=== PATIENT | male | born 1960 | race Caucasian/White ===

== ENCOUNTER 2024-11-10 12:50 | Outpatient (RCR) | payer OTHER, SELFPAY | END 2024-12-03 23:59 | LOC: NS 12:50 | PROVIDERS: PCP Internal Medicine; Referring Provider Internal Medicine; Visit Provider Internal Medicine | DX: Z71.3 Dietary counseling and surveillance (principal); E11.9 Type 2 diabetes mellitus without complications | CPT/HCPCS: 97802 ==

== ENCOUNTER 2024-12-14 16:22 | Outpatient (RCR) | payer OTHER, SELFPAY | END 2025-01-02 23:59 | LOC: NS 16:22 | PROVIDERS: PCP Internal Medicine; Referring Provider Internal Medicine; Visit Provider Internal Medicine | DX: Z71.3 Dietary counseling and surveillance (principal); E11.9 Type 2 diabetes mellitus without complications | CPT/HCPCS: 97803 ==

== ENCOUNTER 2025-01-17 15:56 | Outpatient (RCR) | payer OTHER, SELFPAY | END 2025-02-02 23:59 | LOC: NS 15:56 | PROVIDERS: PCP Internal Medicine; Referring Provider Internal Medicine; Visit Provider Internal Medicine | DX: Z71.3 Dietary counseling and surveillance (principal); E11.9 Type 2 diabetes mellitus without complications | CPT/HCPCS: 97803 ==

== ENCOUNTER 2025-01-26 07:24 | Day surgery (SDC) | payer OTHER, SELFPAY ==
[2025-01-26] VITALS (7 sets, daily range): BP systolic 93–121; BP diastolic 69–86; PULSE 54–67; RESP 16–67; TEMP 36.2–36.6; O2SAT 96–99; BMI 25.0
--- OUTSIDE RECORDS SUMMARY | 2025-01-26 07:27 | XMS RPT_ITS | CCD ---
Author Organization [facility] Care Team Providers Care Personal Shopper Name Role Phone Saumya BANUELOS, Dr. Berg Attending Provider Saumya BANUELOS, Dr. Berg Primary Care Provider [phone] Saumya BANUELOS, Dr. Berg Referring Provider Earlham, Morena Primary Care Unavailable Earlham, Morena Referring Unavailable Saumya, Morena Attending Unavailable Earlham, Morena Referring Unavailable Saumya, Morena Attending Unavailable Earlham, Morena Primary Care Unavailable Earlham, Morena Primary Care Unavailable Saumya, Morena Referring Unavailable Saumya, Morena Attending Unavailable Earlham, Morena Attending Unavailable Saumya, Morena Referring Unavailable Kory Sexton Attending Unavailable Earlham, Morena Primary Care Unavailable Saumya, Morena Primary Care Unavailable Saumya, Morena Referring Unavailable Saumya, Morena Attending Unavailable Medications Current Medications Medication Drug Class(es) Dates Sig (Normalized) Sig (Original) metFORMIN hydrochloride 500 mg oral tablet (6 sources) Biguanide Start: 11-03-2024 take 1 tablet by mouth twice daily at mealtime Metformin 500 mg tablet Active 500 mg PO 2 times per day with meals 60 2 November 03, 2024 2:53pm Start: 10-05-2024 End: 11-03-2024 Metformin 500 mg tablet Disc ontinued 500 mg PO 2 times per day with meals 60 1 October 05, 2024 12:00am November 03, 2024 2:53pm take 500mg once daily for 3 days, then increase to twice daily Completed/Discontinued Medications Medication Drug Class(es) Dates Sig (Normalized) Sig (Original) Sodium Chloride (3 sources) Start: 10-05-2024 End: 10-19-2024 Sodium Chloride (Saline Wound Wash) 0.9 % solution Discontinued 10 mL MC TWICE A DAY 210 14 0 October 05, 2024 12:00am October 18, 2024 12:00am October 19, 2024 12:06am apply to wound area twice daily Start: 10-05-2024 End: 10-19-2024 Sodium Chloride (Saline Woun d Wash) 0.9 % solution Discontinued 10 mL MC TWICE A DAY 210 14 October 05, 2024 12:00am October 18, 2024 12:00am October 19, 2024 12:06am apply to wound area twice daily Problems Problem Classification Problem Date Documented Date Episodic/Chronic Administrative/social admission (2 sources) First encounter by subject; Translations: [Persons encountering health services in other specified circumstances] 10-05-2024 Episodic Diabetes mellitus without complication (4 sources) Type 2 diabetes mellitus; Translations: [Type 2 diabetes mellitus without complications] Onset: 01-04-2025 10-05-2024 Chronic Diabetes mellitus without complication (4 sources) Diabetes mellitus without complication Genitourinary symptoms and ill-defined conditions (3 sources) Post-micturition incontinence ; Translations: [Post-void dribbling] 10-05-2024 Chronic Immunizations and screening for infectious disease (3 sources) Immunization due; Translations: [Encounter for immunization] 10-05-2024 Episodic Inflammatory conditions of male genital organs (2 sources) Balanitis; Translations: [Balanitis] 10-05-2024 Chronic Other circulatory disease (3 sources) Elevated blood pressure; Translations: [Elevated blood-pressure reading, without diagnosis of hypertension] 10-05-2024 Episodic Other nervous system disorders (3 sources) Paresthesia of lower extremity; Translations: [Anesthesia of skin] 10-05-2024 Episodic Other screening for suspected conditions (not mental disorders or infectious disease) (6 sources) Patient encounter status; Translations: [Encounter for screening for malignant neoplasm of colon] 12-05-2024 Episodic Residual codes; unclassified (2 sources) Family history of prostate cancer; Translations: [Family history of malignant neoplasm of prostate] 10-05-2024 Episodic Unclassified (6 sources) Encounter for screening for malignant neoplasm of colon; Translations: [Z12.11 - Encounter for screening for malignant neoplasm of colon] Unclassified (7 sources) E11.9 - Type 2 diabetes mellitus without complications Results Test Name Value Interpretation Reference Range [facility] Internal Medicine Office Vis felix 01-03-2025 Internal Medicine Office Visit [facility] [address] [place], [place] [id number] OFFICE VISIT Date of Service: 01/04/25 MR#: [id number] Acct: [id number] Name: SANG ZAMBRANO Rep #: [id number] : 1960 Provider: Dr. 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: No Is patient in pain?: No Allergies No Known Allergies Allergy (Unverified 01/04/25 08:22) Medications ???Medication ???Instructions ???Recorded ???Confirmed ???Type metformin 500 mg tablet 500 mg PO BIDWMEAL #60 tabs 01/04/25 Rx PFSH Medical History Dermoid cyst of skin of back Back problem Surgical History History of dermoid cyst excision Family History Brother Prostate cancer Social History household members: none current occupational status: employed current occupation: [employer] Smoking Status: Never smoker alcohol intake: former year quit: 1999 substance use type: marijuana do you feel safe at home: Yes HPI HPI Details: SANG ZAMBRANO, is a 64 M who presents to the office today for a follow up. He never did his blood work as previously ordered. He does have his colonoscopy scheduled for later this month. He is due for his second shingrix. He doesn't smoke and doesn't need any refills. He reports he is eating healthy and staying active. He likes to ride his stationary bike at least 10-20 minutes per day. The patient has not been checking his blood pressure at home. He is not taking anything for it. He tries to avoid salty foods. He doesn't drink coffee or energy drinks. At his last office visit, he was found to have a new onset of diabetes. Metformin was started and diet and exercise were discussed. He has been taking it as prescribed without problems. He has been following with the cut off tender glass and feels that has been helpful. He doesn't check his sugars at home. He does try to monitor his carbohydrate and sugar intake. He is not up to date on his diabetic eye exam and doesn't see podiatry. The balanitis from his last office visit has resolved. He reports he is still having some numbness and tingling in his feet bilaterally. He reports it is just slightly better than it had been. He reports with better sugar control, his nocturia has improved. He does still have a little post void dribbling occasionally, but it is better than it was. He has no other questions or concerns at this time. ROS Const Constitutional: Positive for weight change (16 pound weight loss); No body ache, chills, excessive sweating, fatigue, fever(s), frequent falls, headache(s), snoring, weakness, sleep problems or change in appetite Eyes Eyes: Positive for change in vision (improved); No blurry vision, eye pain or Light sensitivity ENT ENT: No abnormal hearing, ear or mastoid pain, tinnitus, nasal congestion, headache(s), neck pain or sore throat Resp Respiratory: No cough, shortness of breath, snoring or wheezing Cardio Cardiology: No chest pain at rest, chest pain with exertion, excessive sweating, shortness of breath, dyspnea on exertion, lightheadedness, orthopnea, palpitations or other (no leg swelling) Gastro GI: No abdominal pain, change in bowel habits, constipation, cramping, diarrhea, nausea/dyspepsia or vomiting Genitourinary Male: Positive for post void dribbling (improving); No difficulty urinating, burning urination, painful urination, urinary incontinence, urinary frequency or Frequent nighttime urination/ nocturia Musc Musculoskeletal: Positive for numbness (feet) and tingling (feet); No abnormal gait, joint pain, back pain, limited range of motion or neck pain Skin Skin: No dry skin, redness, lesions, itchy eyes, rash or wounds Neuro Neurology: Positive for dizziness (one episode, with looking up), numbness (feet) and tingling (feet); No abnormal gait, abnormal hearing, weakness, frequent falls, headache(s), memory loss or fainting Psych Psychiatric: No anxiety, No change in appetite, No depression, No memory loss and No Thoughts of harming yourself/Others Endo Endocrine: Positive for weight change (16 pound weight loss); No cold intolerance, excessive sweating, fatigue, flushing, heat (more content not included)... Normal [facility] - Hematology and Cell countsOrdered By: Morena Kerns on 10-05-2024 HbA1c (Bld) [Mass fraction] 11.8 % High 4.2-6.3 [facility] Internal Medicine Office Vis iton 10-04-2024 Internal Medicine Office Visit [facility] [place] [address] [place] [address] OFFICE VISIT Date of Service: 10/05/24 MR#: [id number] Acct: [id number] Name: SANG ZAMBRANO Rep #: [id number] : 1960 Provider: Dr. 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 Chief Complaint: establishing Field Marketing Coordinator Required: No Accompanied by: Self Is patient in pain?: No Allergies No Known Allergies Allergy (Unverified 10/05/24 07:51) Medications ???Medication ???Instructions ???Recorded ???Confirmed ???Type metformin 500 mg tablet 500 mg PO BIDWMEAL #60 tabs 10/05/24 Rx sodium chloride 0.9 % solution 10 ml miscellaneous BID 14 days 10/05/24 Rx (Saline Wound Wash) #210 mL Have you fallen in the past year?: No Nurse's Note: feels like body is changing lost toe nail, cyst on back, urgency with urination and sensation down leg and urinating often during the night. Uncircumsized and feels like skin closing and its red and irritated and difficult cleaning very tight [facility] Medical History Dermoid cyst of skin of back Back problem Surgical History (Updated 10/05/24 @ 08:[address] Morena Kerns MD) History of dermoid cyst excision Family History Brother Prostate cancer Social History (Updated 10/05/24 @ 08:[address] Morena Kerns MD) household members: none current occupational status: employed current occupation: [employer] Smoking Status: Never smoker alcohol intake: former year quit: 1999 substance use type: marijuana do you feel safe at home: Yes Questionnaire [facility]-9 BMS Over the last 2 weeks, how often have you been bothered by any of the following problems? 1. Little interest or pleasure in doing things: not at all 2. Feeling down, depressed, or hopeless: not at all 3. Trouble falling or staying asleep, or sleeping too much: more than half the days 4. Feeling tired or having little energy: more than half the days 5. Poor appetite or overeating: not at all 6. Feeling bad about yourself - or that you are a failure or have let yourself and your family down: not at all 7. Trouble concentrating on things, such as reading the newspaper or watching television: several days 8. Moving or speaking so slowly that other people could have noticed? - Or the opposite - being so fidgety or restless that you have been moving around a lot more than usual: not at all 9. Thoughts that you would be better off or of hurting yourself in some way: not at all Total score: 5 If you checked off any problems, how difficult have these problems made it for you to do your work, take care of things at home, or get along with other people?: not difficult at all Source: Developed by Drs. Bruno Marx, Cleopatra Herrera, Altaf Royal and colleagues, with an educational tatyana from [employer]. HPI HPI Chief Complaint: establishing Details: SANG ZAMBRANO, is a 64 M who presents to the office today to establish care. He hasn't had a PCP in several years. He is due for some routine blood work and screening. He would like his flu shot and shingles vaccine. He doesn't smoke and doesn't take any prescription medications. He reports he is eating healthy and staying active. He reports he tries to avoid processed foods. The patient has never been told he had high blood pressure. He states at the dentist and other appointments, he is usually told it is good. He tries to avoid salty foods. He doesn't drink coffee or energy drinks. The patient has concerns about his penis. He reports over the last 5-6 months, he has had trouble pulling his foreskin down. He reports it isn't swollen. He reports it is red, but he doesn't feel it is hot to touch. He reports he has been applying vaseline on the area. He reports when it started, he had a 'film' on the area and thought it was a yeast infection. He reports a history of yeast infections, but nothing like this. He reports he tried an OTC monistat cream which he thought was helpful, but his symptoms recurred and has been persistent for a couple of months. He reports he doesn't have any current discharge/buildup. He denies any dysuria, but reports he has been having urinary frequency and post void dribbling. He states his urine does smell a little stronger. He states in the last week, it feels like it is a little wor (more content not included)... Normal [facility] Vital Signs Date Time Vital Sign Value Performing Clinician Norberto dick 01-04-2025 08:29-0400 Body height 177.[address] Morena Kerns MD Work Phone: [facility] 01-04-2025 08:29-0400 Body mass index (BMI) [Ratio] 25.8 kg/m2 Dr. Morena Kerns MD Work Phone: [facility] 01-04-2025 08:29-0400 Body temperature 97.9 [degF] Dr. Morena Kerns MD Work Phone: [facility] 01-04-2025 08:29-0400 Body weight 81.[address] Morena Kerns MD Work Phone: [facility] 01-04-2025 08:29-0400 Diastolic blood pressure 70 mm[Hg] Dr. Morena Kerns MD Work Phone: [facility] 01-04-2025 08:29-0400 Heart rate 60 /min Dr. Morena Kerns MD Work Phone: [facility] 01-04-2025 08:29-0400 Respiratory rate 14 /min Dr. Morena Kerns MD Work Phone: [facility] 01-04-2025 08:29-0400 SaO2% (BldA) [Mass fraction] 97 % Dr. Morena Kerns MD Work Phone: [facility] 01-04-2025 08:29-0400 Systolic blood pressure 112 mm[Hg] Dr. Morena Kerns MD Work Phone: [facility] 12-14-2024 16:28-0400 Body height 177.[address] Morena Kerns MD Work Phone: [facility] 12-14-2024 16:28-0400 Body weight 84.[address] Morena Kerns MD Work Phone: [facility] 11-10-2024 12:20-0400 Body weight 86.[address] Morena Kerns MD Work Phone: [facility] 10-05-2024 09:04-0400 Diastolic blood pressure 80 mm[Hg] Dr. Morena Kerns MD Work Phone: [facility] 10-05-2024 09:04-0400 Systolic blood pressure 142 mm[Hg] Dr. Morena Kerns MD Work Phone: [facility] 10-05-2024 07:48-0400 Body height 177.[address] Morena Kerns MD Work Phone: [facility] 10-05-2024 07:48-0400 Body mass index (BMI) [Ratio] 28.1 kg/m2 Dr. Morena Kerns MD Work Phone: [facility] 10-05-2024 07:48-0400 Body temperature 97.2 [degF] Dr. Morena Kerns MD Work Phone: [facility] 10-05-2024 07:48-0400 Body weight 89.[address] Morena Kerns MD Work Phone: [facility] 10-05-2024 07:48-0400 Heart rate 65 /min Dr. Morena Kerns MD Work Phone: [facility] 10-05-2024 07:48-0400 Respiratory rate 16 /min Dr. Morena Kerns MD Work Phone: [facility] 10-05-2024 07:48-0400 SaO2% (BldA) [Mass fraction] 93 % Dr. Morena Kerns MD Work Phone: [facility] Encounters Encounter Date Encounter Type Care Provider Facility Start: 01-26-2025 ambulatory Morena Kerns Facility :[facility] Start: 01-17-2025 ambulatory Morena Kerns Facility :[facility] Start: 01-04-2025 End: 01-04-[address] Morena Kerns MD -[facility] Work Phone: Start: 01-04-2025 End: 01-04-[address] Morena Kerns MD Work Phone: -[facility] Start: 12-14-2024 End: 01-02-[address] Morena Kerns MD [facility] Work Phone: Start: 12-14-2024 End: 01-02-[address] Morena Kerns MD Work Phone: [facility] Start: 11-10-2024 End: 12-03-[address] Morena Kerns MD -[facility] Work Phone: Start: 11-10-2024 End: 12-03-[address] Morena Kerns MD Work Phone: [facility] Work Phone: Start: 10-05-2024 End: 10-05-[address] Morena Kerns MD -[facility] Work Phone: Start: 10-05-2024 End: 10-05-2024 ambulatory Morena Kerns Facility:[facility] Plan of Treatment Date Care Activity Detail Author Start: 10-05-2024 Patient referral [facility] Work Phone: CBC W Auto Different ial panel - Blood [facility] Comprehensive metabo lic 1999 panel - Serum or Plasma [facility] Lipid 1996 panel - S sally or Plasma [facility] Patient referral [facility] Work Phone: Prostate specific an tigen measurement [facility] Urinalysis complete panel - Urine [facility] Urine microalbumin/c reatinine ratio measurement [facility] Immunizations Immunization Date Immunization Notes Care Provider Fa cility 10-05-2024 influenza, injectabl e, madin kaylan canine kidney, preservative free Dr. Morena Kerns MD Work Phone: [facility] 10-05-2024 Influenza, injectabl e, Madin Kaylan Canine Kidney, preservative free, quadrivalent Dr. Morena Kerns MD Work Phone: [facility] 10-05-[address] Morena Kerns MD Work Phone: [facility] 05-23-2023 Covid (Spikevax) Dr. Morena Kerns MD Work Phone: [facility] 05-23-2023 influenza, injectabl e, quadrivalent, preservative free Dr. Morena Kerns MD Work Phone: [facility] 04-17-2022 influenza, injectabl e, quadrivalent, preservative free Dr. Morena Kerns MD Work Phone: [facility] 07-01-2021 Covid (Moderna) Dr. Morena sharif MD Work Phone: [facility] 03-25-2021 influenza, injectabl e, quadrivalent, preservative free Dr. Morena Kerns MD Work Phone: [facility] 03-25-2021 tetanus toxoid, redu donte diphtheria toxoid, and acellular pertussis vaccine, adsorbed Dr. Morena Kerns MD Work Phone: [facility] 11-21-2020 Covid (Moderna) Dr. Morena sharif MD Work Phone: [facility] 10-18-2020 Covid (Moderna) Dr. Morena sharif MD Work Phone: [facility] 05-09-2015 influenza, injectabl e, quadrivalent, preservative free Dr. Morena Kerns MD Work Phone: [facility] 04-24-2014 influenza, injectabl e, quadrivalent, preservative free Dr. Morena Kerns MD Work Phone: [facility] 05-02-2013 influenza, injectabl e, quadrivalent, preservative free Dr. Morena Kerns MD Work Phone: [facility] 06-21-2009 novel Influenza-H1N1 -09, live virus for nasal administration Dr. Morena Kerns MD Work Phone: [facility] Payers Date Payer Category Payer Self-pay 2024 Unknown [id number] Unknown [id number] [id number] Unknown [id number] [id number] Unknown [id number] [id number] [id number] Unknown [id number] [id number] [id number] Unknown [id number] [id number] [id number] Unknown [id number] 2.16.8 [id number] Social History Date Type Detail Facility [facility]: [facility] Start: 1960 Sex Assigned At Male [facility] Evaluation note 10-05-2024 Note Date & Type Note Facility 10-05-2024 Evaluation note Diagnosis Onset Date Resolution Balanitis noneactive October 05 7:41am Screening for colon cancer noneactive October 05, 2024 7:41am Immunization due noneactive October 7:41am Family history of prostate cancer noneactive October 05, 2024 7:41am Elevated blood pressure reading noneactive October 05, 2024 7:41am Screening for cardiovascular condition noneactive October 052024 7:41am Establishing care with new doctor, encounter for noneactive October 05, 2024 7:41am Post-void dribbling noneactive October 05, 2024 7:41am New onset type 2 diabetes mellitus noneactive October 05 7:41am Numbness and tingling of both legs noneactive October 05, 2024 7:41am [facility] Work Phone: Evaluation note 10-05-2024 Note Date & Type Note Facility 10-05-2024 Evaluation note Diagnosis Onset Date Resolution Balanitis noneactive October 05 7:41am Screening for colon cancer noneactive October 05, 2024 7:41am Immunization due noneactive October 7:41am Family history of prostate cancer noneactive October 05, 2024 7:41am Elevated blood pressure reading noneactive October 05, 2024 7:41am Screening for cardiovascular condition noneactive October 052024 7:41am Establishing care with new doctor, encounter for noneactive October 05, 2024 7:41am Post-void dribbling noneactive October 05, 2024 7:41am New onset type 2 diabetes mellitus noneactive October 05 7:41am Numbness and tingling of both legs noneactive October 05, 2024 7:41am Immunization due noneactive January 8:21am Elevated blood pressure reading noneactive January 04, 2025 8:21am Post-void dribbling noneactive January 04, 2025 8:21am New onset type 2 diabetes mellitus noneactive January 04, 2025 8:21am Numbness and tingling of both legs noneactive January 04, 2025 8:21am [facility] Work Phone: Evaluation note Note Date & Type Note Facility Evaluation note No assessment information availa [facility] Work Phone: Hospital Discharge instructions Note Date & Type Note Facility Hospital Discharge instructions Ambulatory OrdersOphthalmology Location: None Selected [facility] Work Phone: Chief Complaint and Reason for Visit 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 October 05, 2024 7:41am TYPE 2 DM November 10, 2024 12:50p m TYPE 2 DM December 14, 2024 4:22 pm Reason for Visit Admit Date Balanitis October 05, 2024 7:41 am Screening for colon cancer October 05 7:41am Immunization due October 05, 2024 7:41 am Family history of prostate cancer October 05, 2024 7:41am Elevated blood pressure reading October 7:41am Screening for cardiovascular condition A pri2024 7:41am Establishing care with new doctordannie for October 05, 2024 7:41am Post-void dribbling October 05, 2024 7:41 am New onset type 2 diabetes mellitus October 05, 2024 7:41am Numbness and tingling of both legs October 05, 2024 7:41am 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 October 05, 2024 7:41am TYPE 2 DM November 10, 2024 12:50p m TYPE 2 DM December 14, 2024 4:22 pm 3 M FU January 04, 2025 8:21a m Reason for Visit Admit Date Balanitis October 05, 2024 7:41 am Screening for colon cancer October 05 7:41am Immunization due October 05, 2024 7:41 am Family history of prostate cancer October 05, 2024 7:41am Elevated blood pressure reading October 7:41am Screening for cardiovascular condition A 2024 7:41am Establishing care with new doctordannie for October 05, 2024 7:41am Post-void dribbling October 05, 2024 7:41 am New onset type 2 diabetes mellitus October 05, 2024 7:41am Numbness and tingling of both legs October 05, 2024 7:41am Immunization due January 04, 2025 8:21a m Elevated blood pressure reading January 8:21am Post-void dribbling January 04, 2025 8:21a m New onset type 2 diabetes mellitus January 04, 2025 8:21am Numbness and tingling of both legs January 04, 2025 8:21am Summary Purpose Family History No Family History Records Found Advance Directives No Advanced Directives Records Found Additional Source Comments Care Teams (unrecognized sec tion and content) Team Status: Active Member Role Status Dates Dr. Morena Kerns MD Primary Care Provider Active Team Status: Inactive Member Role Status Dates Dr. Morena Kerns MD Attending Provider Active Start: October 05, 2024 End: October 05, 2024 Team Status: Inactive Member Role Status Dates Dr. Morena Kerns MD Primary Care Provider Active Start: November 10, 2024 End: December 03, 2024 Dr. Morena Kerns MD Attending Provider Active Start: November 10, 2024 End: December 03, 2024 Dr. Morena Kerns MD Referring Provider Active Start: November 10, 2024 End: December 03, 2024 Team Status: Active Member Role/Relationship Status Dates Dr. Morena Kerns MD Primary Care Provider Active Team Status: Inactive Member Role/Relationship Status Dates Dr. Morena Kerns MD Attending Provider Active Start: October 05, 2024 End: October 05, 2024 Team Status: Inactive Member Role/Relationship Status Dates Dr. Morena Kerns MD Primary Care Provider Active Start: November 10, 2024 End: December 03, 2024 Dr. Morena Kerns MD Attending Provider Active Start: November 10, 2024 End: December 03, 2024 Dr. Morena Kerns MD Referring Provider Active Start: November 10, 2024 End: December 03, 2024 Team Status: Inactive Member Role/Relationship Status Dates Dr. Morena Kerns MD Primary Care Provider Active Start: December 14, 2024 End: January 02, 2025 Dr. Morena Kerns MD Attending Provider Active Start: December 14, 2024 End: January 02, 2025 Dr. Morena Kerns MD Referring Provider Active Start: December 14, 2024 End: January 02, 2025 Team Status: Inactive Member Role/Relationship Status Dates Dr. Morena Kerns MD Primary Care Provider Active Start: January 04, 2025 End: January 04, 2025 Dr. Morena Kerns MD Attending Provider Active Start: January 04, 2025 End: January 04, 2025 Dr. Morena Kerns MD Referring Provider Active Start: January 04, 2025 End: January 04, 2025 Goals (unrecognized section and content) Goals may be documented in a n alternate sectionGoals may be documented in an alternate sectionGoals may be documented in an alternate section (unrecognized sect ion and content) No Status Records Found INFORMATION SOURCE (unrecogn ized section and content) DATE CREATED AUTHOR 01/25/2025 [facility] FOR RECORDS PERTAINING TO PATIENTS WHO ARE OR HAVE BEEN ENROLLED IN A CHEMICAL DEPENDENCY/SUBSTANCEABUSE PROGRAM, SOME INFORMATION MAY BE OMITTED. This clinical summary was aggregated from multiple sources. Caution should be exercised in using it in the provision of clinical care. This summary normalizes information from multiple sources, and as a consequence, information in this document may materially change the coding, format and clinical context of patient data. In addition, data may be omitted in some cases. CLINICAL DECISIONS SHOULD BE BASED ON THE PRIMARY CLINICAL RECORDS. [facility] [employer] [facility] provides no warranty or guarantee of the accuracy or completeness of information in this document.
[2025-01-26] MEDS: Lactated Ringers 1,000 ML 15 ML IV (07:54)
--- NOTE | 2025-01-26 08:06 | PCM.PRE.AN2 ---
ASA Classification* ASA Classification ASA Classification: 2 Assessment & Plan Anesthesia* Anesthesia Assessment Anesthesia Assessment: Discussed sedation and/or anesthesia options, risks, benefits, and alternatives with patient/parents/legal guardian/POA. Questions invited. The patient/parents/legal guardian/POA seems to understand and agrees to proceed with anesthesia plan. Reviewed the physical assessment, medical history, allergy history and patient home medications list prior to surgery/procedure/anesthetic and documented any changes. Performed airway and anesthesia risk assessments. Anesthesia Type Anesthesia Type: General and MAC Anesthesia Focused Assessment* Temperature: 97.9 F Pulse Rate: 67 Blood Pressure: 121/85 Respiratory Rate: 67 Pulse Ox: 98 Airway Assessment Mouth opens: >3 cm Mallampati Score: II Teeth Condition: Missing (right upper molar) Neck Range of motion (ROM): Full ROM Labs Anesthesia Preop lab: CBC CHEMISTRY COAG Pre-Assessment Diagnosis/Proposed Procedure Planned Operative Procedure(s): COLONOSCOPY Anesthesia History Anesthesia History - orthotic practitioner: Anesthesia History - orthotic practitioner Hx Hospitalization No 01/24/25 10:31 Any Problems With Anesthesia No 01/24/25 10:31 Cholinesterase deficiency No 01/24/25 10:31 You/Your Family Experience No 01/24/25 10:31 fever (hyperthermia) with Relationship Recent Exposure to Contagious No 01/26/25 07:52 Disease Does patient have nerve No 01/24/25 10:31 stimulator Patient instructed to have device shut off --Does patient have Pacemaker No 01/26/25 07:52 or ICD? When Was Last Pacemaker Check QUESTION #4 FULL TEXT: You/Your Family Experience fever (hyperthermia) with Anesthesia Last Oral Intake Last Oral intake: Last Oral Intake NPO since 05:00 01/26/25 07:52 Meds taken in AM with sips of No 01/26/25 07:52 water? Meds patient instructed to take am of surgery PONV PONV - orthotic practitioner: PONV - orthotic practitioner Female No 01/24/25 10:31 HX of Motion Sickness No 01/24/25 10:31 HX of N/V After Surgery No 01/24/25 10:31 Non-Smoker Yes 01/24/25 10:31 Duration of Surgery greater No 01/24/25 10:31 than 60 minutes Number of Risk Factors 1 01/24/25 10:31 PONV Score Low Risk 01/24/25 10:31 Height & Weight Height & Weight: Anesthesia: Height & Weight Height 5 ft 10 in 01/26/25 07:52 Weight: 79 kg 01/26/25 07:52 Body Mass Index (BMI) 25.0 01/26/25 07:52 Respiratory Assessment Respiratory Assessment - orthotic practitioner: Respiratory Tract Infection Hx - orthotic practitioner Hx Respiratory Tract Infection Yes: 1 WEEK AGO- JUST LEFT 01/24/25 10:31 OVER COUGH STOP Sleep Apnea STOP Sleep Apnea - orthotic practitioner: STOP Sleep Apnea - orthotic practitioner Hx Hypertension No 01/24/25 10:31 Hx Sleep Apnea No 01/24/25 10:31 CPAP BIPAP Do you snore loudly (louder No 01/24/25 10:31 than talking or can be heard Do you often feel tired/ No 01/24/25 10:31 fatigued/ sleepy during daytime? Has anyone observed you stop No 01/24/25 10:31 breathing during sleep? STOP Results Negative 01/24/25 10:31 QUESTION #5 FULL TEXT : Do you snore loudly (louder than talking or can be heard through closed doors)? 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 Specify any problems Hx of Preganancy in last 3 N/A 01/24/25 10:31 Months Nurse Filling Out Transfusion [email or web address] 01/24/25 10:31 & Questions: Date: 01/24/25 01/24/25 10:31 Time: 10:36 01/24/25 10:31 Patient unable to answer at this time (ie. confused, unrespo /Reproduction History /Reproductive History - orthotic practitioner: /Reproductive Hx- orthotic practitioner Hx Now Gestational Age (in weeks): EDC: Hx Hx Para Hx Section SAB Active Medications Active Medications: Current Medications Generic Name Dose Route Start Last Admin Trade Name Freq PRN Reason Stop Dose Admin Lactated Ringer's 1,000 mls @ 15 mls/hr 01/26/25 07:45 01/26/25 07:54 IV 15 mls/hr .Q48H MARIUSZ Administration PFSH Medical History Marijuana use Diabetes Non-smoker Dermoid cyst of skin of back Back problem Home Medications Medication Instructions Recorded Last Taken Type metformin 500 mg tablet 500 mg PO BIDWMEAL #60 tabs 11/03/24 01/23/25 Rx Allergy/AdvReac Type Severity Reaction Status Date / Time No Known Allergies Allergy Verified 01/26/25 07:51 Family History Brother Prostate cancer Surgical History History of dermoid cyst excision Social History household members: none current occupational status: employed current occupation: [employer] Smoking Status: Never smoker alcohol intake: former year quit: 1999 substance use type: marijuana do you feel safe at home: Yes Review of Systems (Anesthesia) ROS Narrative System reviewed and no additional complaints, except as documented.
--- NOTE | 2025-01-26 08:30 | COLBX_PTH ---
PATIENT: SANG ZAMBRANO LOC: EN U#:[id number] AGE/SX: 64/M ROOM: RE01/26/[address]: Dr. Kory Sexton MD : 1960 BED: DIS: 01/26/2025 SPEC #: [id number] RECD: 01/26/25 13:16 STATUS: LUIS ZANDER #: [id number] IVONE: 01/26/25 08:[address]: Kory Sexton DEPT: SURGICAL PATHOLOGY RECD BY: Fabricio Salgado ENTERED: 01/26/25 14:06 SP TYPE: COLON BX OTHR DR: Dr. Morena Kerns MD Tissues: A - Transverse colon B - Transverse colon C - Cecum, NOS D - Rectum, NOS Procedures: Surgery Specimen Level IV HEADER OPERATION: Colonoscopy, polypectomy, biopsy PRE-OP DIAGNOSIS: Screening for malignant neoplasm of colon TISSUE SUBMITTED: A- Transverse colon polyp, B- Proximal transverse colon polyp, C- Cecal biopsy, D- Rectal biopsy MICROSCOPIC DIAGNOSIS A. Transverse colon, polyp, biopsy: - Tubular adenoma, multiple fragments. B. Proximal transverse colon, polyp, biopsy: - Prolapse features with mucosal lymphoid aggregate. C. Cecum, biopsy: - Tubular adenoma. D. Rectum, biopsy: - Hyperplastic polyp. MICROSCOPIC DESCRIPTION Slides are reviewed. GROSS DESCRIPTION A. Received in fixative is one container labeled with the patient's name and designated "Transverse colon polyp." The specimen consists of multiple irregular fragments of light gonzalez soft tissue that in aggregate measure 1.2 x 0.7 x 0.1 cm. The specimen is totally submitted in one cassette. B. Received in fixative is one container labeled with the patient's name and designated "Proximal transverse colon polyp." The specimen consists of one irregular fragment of light gonzalez soft tissue that measures 0.3 cm. The specimen is totally submitted in one cassette. C. Received in fixative is one container labeled with the patient's name and designated "Cecal biopsy." The specimen consists of one irregular fragment of light gonzalez soft tissue that measures 0.3 cm. The specimen is totally submitted in one cassette. D. Received in fixative is one container labeled with the patient's name and designated "Rectal biopsy." The specimen consists of one irregular fragment of light gonzalez soft tissue that measures 0.6 cm. The specimen is totally submitted in one cassette. AR 01/26/2025 CPT:74852p6
--- NOTE | 2025-01-26 09:03 | HP.PCM_ITS ---
[facility] - General General Date of Service: 01/26/25 Chief Complaint: Screening colonoscopy [facility] Narrative SANG ZAMBRANO, is a 64 M who presents screening colonoscopy. He confirms his preappointment questionnaire that he has not experienced any change in her bowel habits-and particularly denies any notice of blood. He also denies any family history of GI illness to include diverticulitis, inflammatory bowel disease, or colon cancer. However, he reports that at least one of his brothers was diagnosed with colonic polyps in the past. Lastly he confirms that his prep was completed successfully and that his output is now clear. [facility] Medical History Marijuana use Diabetes Non-smoker Dermoid cyst of skin of back Back problem Home Medications Medication Instructions Recorded Last Taken Type metformin 500 mg tablet 500 mg PO BIDWMEAL #60 tabs 11/03/24 01/23/25 Rx Allergy/AdvReac Type Severity Reaction Status Date / Time No Known Allergies Allergy Verified 01/26/25 07:51 Family History Brother Prostate cancer Surgical History History of dermoid cyst excision Social History household members: none current occupational status: employed current occupation: [employer] Smoking Status: Never smoker alcohol intake: former year quit: 1999 substance use type: marijuana do you feel safe at home: Yes Past Medical/Surgical History Planned Operation Planned Operative Procedure(s): COLONOSCOPY Respiratory Do You Snore Loudly (louder than talking or can be heard): No Do You Often Feel Tired/ Fatigued/ Sleepy Dring Daytime?: No Has Anyone Observed You Stop Breathing During Sleep?: No Result (for STOP score): Negative Smoking Status: Never smoker Miscellaneous Recent Exposure to Contagious Disease: No Allergies No Known Allergies Allergy (Verified 01/26/25 07:51) Discharge After D/C, Where Do you Plan to Go: Return Home Vital Signs Vital Signs Vital Signs: 01/26/25 07:52 01/26/25 07:52 01/26/25 08:07 Temperature 97.9 F 97.9 F Temperature Source Temporal Pulse Rate 67 67 Respiratory Rate 67 H 67 H Respiratory Pattern Normal Blood Pressure 121/85 H 121/85 H Blood Pressure Mean 97 Blood Pressure Source Monitor Blood Pressure Position Sitting Blood Pressure Location Right Arm Pulse Ox 98 98 Oxygen Delivery Method Room Air Weight Weight: 174 lb 2.643 oz Body Mass Index (BMI) 25.0 Physical Exam Const alert, oriented x3 and no apparent distress Resp normal respiratory effort GI GI Narrative: No scars, nondistended, soft, nontender to palpation x 4 quadrants Assessment & Plan Assessment/Plan (1) Screening for malignant neoplasm of colon: PLAN: Patient is 64-year-old male who arrives for screening colonoscopy through open access program. All details of his preprocedure questionnaire are confirmed. He also reports that he completed prep for today's procedure without difficulty and that his output is appropriate. Overview of procedure described–including process for biopsies and they are reporting. Patient denies any questions. Proceed to endoscopy suite for scheduled colonoscopy. Surgery Risks - Colonoscopy Risks Include but are not Limited To: Risks include but are not limited to: Bleeding, perforation requiring further surgery, inability to complete colonoscopy requiring barium enema.
--- NOTE | 2025-01-26 09:59 | OP.COLON_ITS ---
Patient Name: Sudeep Coles Procedure Date: 01/26/2025 9:01 AM Date of : 1960 Age: 64 Procedure: Colonoscopy Indications: Screening for colorectal malignant neoplasm Providers: Kory Sexton MD Referring MD: Morena Kerns Md Medicines: See the Anesthesia note for documentation of the administered medications Patient Profile: Last Colonoscopy: none. The patient's first colonoscopy is today. Complications: No immediate complications. Estimated blood loss: Minimal. Procedure: Pre-Anesthesia Assessment: - The heart rate, respiratory rate, oxygen saturations, blood pressure, adequacy of pulmonary ventilation, and response to care were monitored throughout the procedure. After I obtained informed consent, the scope was passed under direct vision. Throughout the procedure, the patient's blood pressure, pulse, and oxygen saturations were monitored continuously. The Colonoscope was introduced through the anus and advanced to the cecum, identified by the appendiceal orifice, ileocecal valve and palpation. The colonoscopy was somewhat difficult due to a tortuous colon. Successful completion of the procedure was aided by using manual pressure. Scope In: 9:16:55 AM Scope Withdrawal Time 0 hours 21 minutes 11 seconds Scope Out: 9:50:33 AM Total Procedure Duration Time 0 hours 33 minutes 38 seconds Findings: The perianal and digital rectal examinations were normal. A 10 mm polyp was found in the transverse colon. The polyp was semi-pedunculated. The polyp was removed with a hot snare. Resection and retrieval were complete. Estimated blood loss: none. A 10 mm polyp was found in the proximal transverse colon. The polyp was semi-pedunculated. The polyp was removed with a hot snare. Resection and retrieval were complete. Estimated blood loss: none. A localized area of granular mucosa was found in the cecum. Biopsies were taken with a cold forceps for histology. Estimated blood loss was minimal. A localized area of granular mucosa was found in the rectum. Biopsies were taken with a cold forceps for histology. Estimated blood loss was minimal. The exam was otherwise without abnormality on direct and retroflexion views. Impression: - One 10 mm polyp in the transverse colon, removed with a hot snare. Resected and retrieved. - One 10 mm polyp in the proximal transverse colon, removed with a hot snare. Resected and retrieved. - Granularity in the cecum. Biopsied. - Granularity in the rectum. Biopsied. - The examination was otherwise normal on direct and retroflexion views. Recommendation: - Discharge patient to home (via wheelchair). - Resume previous diet today. - No aspirin, ibuprofen, naproxen, or other non-steroidal anti-inflammatory drugs for 2 days after biopsy. - Await pathology results. - Repeat colonoscopy date to be determined after pending pathology results are reviewed for surveillance based on pathology results. - Telephone my office for pathology results in 1 week. Procedure Code(s): --- Professional --- 06707, Colonoscopy, flexible; with removal of tumor(s), polyp(s), or other lesion(s) by snare technique 62407, 59, Colonoscopy, flexible; with biopsy, single or multiple Diagnosis Code(s): --- Professional --- Z12.11, Encounter for screening for malignant neoplasm of colon D12.3, Benign neoplasm of transverse colon (hepatic flexure or splenic flexure) K63.89, Other specified diseases of intestine K62.89, Other specified diseases of anus and rectum CPT copyright 2021 [employer]. All rights reserved. The codes documented in this report are preliminary and upon drawing tracer review may be revised to meet current compliance requirements. Kory Sexton MD 01/26/2025 9:58:58 AM This report has been signed electronically. Number of Addenda: 0 Note Initiated On: 01/26/2025 9:01 AM
--- NOTE | 2025-01-26 09:59 | OP.CCLET_ITS ---
01/26/2025 Morena Kerns Md Re : Colonoscopy procedure for Sudeep Coles Dear Saumya This procedure was performed on January. My impressions and recommendations are as follows: Impressions : - One 10 mm polyp in the transverse colon, removed with a hot snare. Resected and retrieved. - One 10 mm polyp in the proximal transverse colon, removed with a hot snare. Resected and retrieved. - Granularity in the cecum. Biopsied. - Granularity in the rectum. Biopsied. - The examination was otherwise normal on direct and retroflexion views. Recommendations : - Discharge patient to home (via wheelchair). - Resume previous diet today. - No aspirin, ibuprofen, naproxen, or other non-steroidal anti-inflammatory drugs for 2 days after biopsy. - Await pathology results. - Repeat colonoscopy date to be determined after pending pathology results are reviewed for surveillance based on pathology results. - Telephone my office for pathology results in 1 week. My findings are described in the full procedure note, which is enclosed. If I can be of further assistance, please feel free to contact me at Doctor phone number(s): , Work: . Sincerely, Kory Sexton MD 01/26/2025 9:58:58 AM This report has been signed electronically.
--- NOTE | 2025-01-26 09:59 | PCM.POST.ANE ---
Anesthesia: Postop Eval I Current Vital Signs Temperature: 97.4 F Pulse Rate: 54 Blood Pressure: 106/69 Respiratory Rate: 16 Pulse Ox: 96 Oxygen Delivery Method: Room Air Assessment Airway patent: Yes Spontaneous unlabored respirations: Yes Mental status: Awake and Calm nausea: No Vomiting: No Anesthesia Complication: No Fluid Hydration Crystalloid volume administer (ml): 900 Total IV fluid infused: 900 Progress Note Post-operative progress note: patient states he has an active URI: "I have a cold" Anesthesia document: Postop Eval 1 completed: Yes
--- NOTE | 2025-01-26 10:29 | POSTOPAN2_ITS ---
Anesthesia Postop Eval I Sum Postop Eval Completion status Anesthesia document: Postop Eval 1 completed: Yes Anesthesia Postop Eval I Summary Anesthesia Postop Eval I Summary: Anesthesia Postop Eval I: Assessment Summary Airway patent Yes 01/26/25 10:01 BAG [email or web address].SHOF Spontaneous unlabored Yes 01/26/25 10:01 BAG BAILER.GIBRAN respirations Mental status Awake,Calm 01/26/25 10:01 BAG BAILER.SHOF nausea No 01/26/25 10:01 BAG BAILER.SHOF Vomiting No 01/26/25 10:01 [facility] Postop Eval I: Fluid Summary Crystalloid volume administer 900 01/26/25 10:01 BAG BAILER.SHOF (ml) Colloids volume administered ( ml) Blood Product volume administered (ml) Total IV fluid infused 900 01/26/25 10:01 BAG BAILER.[facility] Anesthesia Postop Eval I: Summary Notes Anesthesia Complication No 01/26/25 10:01 BAG BAILER.[facility] Anesthesia Complication Comment: Post-operative progress note patient states he 01/26/25 10:01 BAG BAILER.GIBRAN has an active URI: "I have a cold" Anesthesia: Postop Eval II Evaluation Mental status: Awake and Calm Pain Level: 1 nausea: No Vomiting: No Complications Anesthesia Complication: No
--- NOTE | 2025-01-26 10:29 | PCM.POSTANE2 ---
Anesthesia Postop Eval I Sum Postop Eval Completion status Anesthesia document: Postop Eval 1 completed: Yes Anesthesia Postop Eval I Summary Anesthesia Postop Eval I Summary: Anesthesia Postop Eval I: Assessment Summary Airway patent Yes 01/26/25 10:01 BATH DESIGN SALES CONSULTANT.SHOF Spontaneous unlabored Yes 01/26/25 10:01 BATH DESIGN SALES CONSULTANT.GIBRAN respirations Mental status Awake,Calm 01/26/25 10:01 BATH DESIGN SALES CONSULTANT.SHOF nausea No 01/26/25 10:01 BATH DESIGN SALES CONSULTANT.SHOF Vomiting No 01/26/25 10:01 [facility] Anesthesia Postop Eval I: Fluid Summary Crystalloid volume administer 900 01/26/25 10:01 BATH DESIGN SALES CONSULTANT.SHOF (ml) Colloids volume administered ( ml) Blood Product volume administered (ml) Total IV fluid infused 900 01/26/25 10:01 BATH DESIGN SALES CONSULTANT.[facility] Anesthesia Postop Eval I: Summary Notes Anesthesia Complication No 01/26/25 10:01 BATH DESIGN SALES CONSULTANT.[facility] Anesthesia Complication Comment: Post-operative progress note patient states he 01/26/25 10:01 BATH DESIGN SALES CONSULTANT.GIBRAN has an active URI: "I have a cold" Anesthesia: Postop Eval II Evaluation Mental status: Awake and Calm Pain Level: 1 nausea: No Vomiting: No Complications Anesthesia Complication: No
== END 2025-01-26 10:48 | disposition home or self-care (01) ==
LOC: EN 07:24 → AC 07:25
PROVIDERS: PCP Internal Medicine; Referring Provider Internal Medicine; Visit Provider Surgery
PROC: 0DJD8ZZ Inspection of Lower Intestinal Tract, Via Natural or Artificial Opening Endoscopic (ICD-10-PCS; CPT 45378; principal; 2025-01-26 08:25)
DX: Z12.11 Encounter for screening for malignant neoplasm of colon (principal); E11.9 Type 2 diabetes mellitus without complications; Z79.84 Long term (current) use of oral hypoglycemic drugs; D12.3 Benign neoplasm of transverse colon; K62.1 Rectal polyp
CPT/HCPCS: 45385; 45380; 82962; 88305

== ENCOUNTER 2025-04-19 16:03 | Outpatient (RCR) | payer OTHER, SELFPAY | END 2025-05-05 23:59 | LOC: NS 16:03 | PROVIDERS: PCP Internal Medicine; Referring Provider Internal Medicine; Visit Provider Internal Medicine | DX: Z71.3 Dietary counseling and surveillance (principal); E11.9 Type 2 diabetes mellitus without complications | CPT/HCPCS: 97803 ==

== ENCOUNTER → 2025-05-15 | Outpatient (CLI) | payer OTHER, SELFPAY ==
[2025-05-15 10:22] LABS: Red Blood Cells-Urine 0 SEEN /hpf (0-5); Squamous Epithelial Cells - UA 0 SEEN /hpf (0-5)
[2025-05-15 11:10] LABS: Hematocrit 52.8 % (40-54); Hemoglobin 17.6 g/dL (13.0-16.5); Immature Granulocytes Count 0.020 X10^3/uL (0.0-0.0); Mean Corp Hgb Conc 33.3 g/dL (32-36); Mean Corpuscular Volume 89.2 fL (80-94); Mean Platelet Vol. 10.4 fl (6.2-12.0); NRBC Flagged by Analyzer 0 % (0-5); Platelet Count 203 K/mm3 (150-450); RBC Distribution Width CV 12.0 % (11.6-14.6); RBC Distribution Width SD 39.5 fl (35.1-43.9); Red Blood Count 5.92 M/mm3 (4.6-6.2); White Blood Count 6.8 K/mm3 (4.4-11.0)
[2025-05-15 11:13] LABS: Color, Urine Yellow (Yellow); Glucose, Dipstick Normal (Normal); Ketone-Dipstick 15 mg/dl (Negative); Leukocyte Esterase-Dipstick Negative /ul (Negative); Nitrite-Dipstick Negative (Negative); Occult Blood-Urine Negative /ul (Negative); Protein-Dipstick 15 mg/dl (Negative); Specific Gravity, Urine 1.025 (1.002-1.030); Urine Bilirubin Dipstick Negative (Negative)
[2025-05-15 11:21] LABS: Mucous, Urine 1+ /hpf (<or=2+)
[2025-05-15 11:45] LABS: Creatinine, Urine (random) 194.00 mg/dL (39.00-259.00); Microalbumin,Random Urine 20.9 mg/L (<20 mg/L)
[2025-05-15 11:54] LABS: AST(SGOT) 21 U/L (<=37); Alanine Aminotransfer ALT/SGPT 20 U/L (<=46); Albumin, Serum 4.4 g/dL (3.4-4.8); Alkaline Phosphatase 67 U/L (40-129); Anion Gap 11 (5-15); BUN 13 mg/dL (4-19); BUN/Creat Ratio 14.7 RATIO (10-20); Calcium,Total 9.6 mg/dL (7.6-11.0); Carbon Dioxide 26.7 mmol/L (21.0-32.0); Chloride 102 mmol/L (98-108); Cholesterol 189 mg/dL (<=200); Globulin 2.8 g/dL (2.2-4.2); Glucose 126 mg/dL (70-99); Low Density Lipoprotein Calc. 114 mg/dL; PSA,Total- Diagnostic 0.59 ng/mL (0.00-4.00); Potassium 4.7 mmol/L (3.3-5.1); Triglycerides 90 mg/dL; Very Low Density Lipoprotein 18 mg/dL (5-40); cholesterol:hdl ratio screen 3.23
== END | disposition home or self-care (01) ==
LOC: LAB 10:20
PROVIDERS: PCP Internal Medicine; Referring Provider Internal Medicine; Visit Provider Internal Medicine
DX: N48.1 Balanitis (principal); E11.9 Type 2 diabetes mellitus without complications; N39.43 Post-void dribbling; Z80.42 Family history of malignant neoplasm of prostate; Z13.6 Encounter for screening for cardiovascular disorders
CPT/HCPCS: 36415; 80053; 80061; 81001; 82043; 82570; 84153; 85025; 87086